=== PATIENT | male | born 1995 | race African-American/Black ===

== ENCOUNTER 2017-02-14 16:24 | Emergency (ER) | payer SELFPAY ==
[~2017-02-14] VITALS: Ht 180.3 cm; Wt 59.0 kg
[2017-02-14 16:36] VITALS: BP 135/61
[2017-02-14] MEDS ORDERED: AZITHROMYCIN 250 MG TABLET. PO ONE (16:45)
[2017-02-14] MEDS ORDERED: metroNIDAZOLE 500 MG TABLET PO ONE (16:45)
[2017-02-14] MEDS ORDERED: cefTRIAXone IM 250 MG VIAL IM ONE (16:45)
[2017-02-14 16:48] LABS: BILIRUBIN,URINE SMALL (NEG); GLUCOSE,URINE NEGATIVE (NEG); NITRITE,URINE NEGATIVE (NEG); PH,URINE 5.5; PROTEIN,URINE NEGATIVE (NEG-TRACE)
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
[2017-02-14 17:05] LABS: BACTERIA,URINE 0 /HPF (0-FEW); RBC,URINE OCC /HPF (0-2)
[2017-02-14] MEDS ORDERED: CIPR500T94 PO (17:13)
== END 2017-02-14 17:39 | disposition home or self-care (01) ==
LOC: ER 16:24
DX: Z11.3 Encounter for screening for infections with a predominantly sexual mode of transmission (principal); N39.0 Urinary tract infection, site not specified; F12.10 Cannabis abuse, uncomplicated; F17.210 Nicotine dependence, cigarettes, uncomplicated
CPT/HCPCS: 81001; 87086; 87491; 87591; 96372; 99284; J0696; Q0144

== ENCOUNTER 2017-03-01 01:29 | Emergency (ER) | payer SELFPAY ==
[~2017-03-01] VITALS: Ht 180.3 cm; Wt 61.2 kg
[~2017-03-01 01:29] MED LIST: CIPR500T94 PO
[2017-03-01 01:45] VITALS: BP 128/61
[2017-03-01] MEDS ORDERED: FLUORESCEIN OPHTH TEST STRIP. OS ONE (01:45)
[2017-03-01] MEDS ORDERED: TETRACAINE 0.5% OPHTH SOLUTION 4ML BOTTLE. OS ONE (01:45)
[2017-03-01] MEDS ORDERED: HYDROcodone/APAP 5/325MG 1 TAB TABLET PO ONE (02:15)
--- NOTE | 2017-03-01 02:20 | PHYS DOC ---
Past Medical History Past Medical History: No Pertinent History Past Surgical History: Other Additional Past Surgical Histo: RIGHT LEG Alcohol Use: None Drug Use: Marijuana Adult General Chief Complaint Chief Complaint: EYE PROBLEMS HPI HPI Patient is a 22 year old male presenting to the emergency department for evaluation of left eye pain status post being licked by a dog 2 days ago. Wears contact lenses and said he took out his contact lenses earlier yesterday. Patient says that he has photophobia with blurred vision. He denies any fevers chills nausea vomiting but he does have clear drainage from his left eye. Review of Systems Review of Systems Constitutional: Denies fever or chills [] Eyes: + change in visual acuity, redness, eye pain [] Current Medications Current Medications Current Medications Medications (Trade) Dose Ordered Sig/Natividad Start Time Stop Time Status Last Admin Dose Admin Acetaminophen/ Hydrocodone Bitart (Lortab 5/325) 2 tab 1X ONCE 03/01/17 02:15 03/01/17 02:16 DC 03/01/17 02:21 2 TAB Fluorescein Sodium (Ful-Chelsea) 1 strip 1X ONCE 03/01/17 01:45 03/01/17 01:46 DC 03/01/17 01:54 1 STRIP Tetracaine HCl (Tetracaine) 1 drop 1X ONCE 03/01/17 01:45 03/01/17 01:46 DC 03/01/17 01:54 1 DROP Allergies Allergies Allergies Coded Allergies Type Severity Reaction Last Updated Verified No Known Drug Allergies 02/14/17 No Physical Exam Physical Exam Constitutional: Well developed, well nourished, no acute distress, non-toxic appearance. [] Eyes: PERRLA, EOMI, diffuse conjunctival injection with no hyphema. At 6 o' clock position on the iris appears that there is some corneal inflammation but no dendrites. No foreign body seen. His iris appears very inflamed. Direct and consensual photophobia. Current Patient Data Vital Signs Vital Signs Date Time Temp Pulse Resp B/P (MAP) Pulse Ox O2 Delivery O2 Flow Rate FiO2 03/01/17 01:45 98.1 64 16 128/61 (83) 98 Room Air 98.1 EKG EKG [] Radiology/Procedures Radiology/Procedures [] Course & Med Decision Making Course & Med Decision Making Exam is consistent with an iritis so I spoke to the bag hanger audit consultant Dr. Alves and he stated that this was likely a keratitis given he is a contact lens wearer in the dog bite may have nothing to do with it. He recommended TobraDex and to follow with his motivational speaker later on today and come back to the ED with return precautions discussed. Basically he was told to come back with worsening redness photophobia or light sensitivity or vision changes. Patient aware and agreeable with plan for discharge and verbalized understanding of the need for short-term follow-up in the strict ER return precautions discussed as above. Dragon Disclaimer Dragon Disclaimer This electronic medical record was generated, in whole or in part, using a voice recognition dictation system. Departure Departure Impression: Primary Impression: Keratitis Disposition: HOME, SELF-CARE Condition: GOOD Referrals: NO PCP (PCP) Kosta AWAD MD Patient Instructions: Iritis Additional Instructions: DO NOT WEAR YOU CONTACT LENSES. START THE MEDICATION TODAY. YOU CAN ALSO TAKE IBUPROFEN FOR PAIN. FOLLOW WITH YOUR BILINGUAL MEDICAL RECEPTIONIST OR THE MOTORCYCLE POLICE OFFICER LATER ON TODAY. RETURN FOR WORSENING REDNESS, LIGHT SENSITIVITY, VISION CHANGES, OR PAIN. Scripts Hydrocodone/Apap 5-325 (NORCO 5-325 TABLET) 1 Each Tablet 1 TAB PO PRN Q6HRS Y for PAIN, #14 TAB 0 Refills Prov: GINNY DE OLIVEIRA DO 03/01/17 Tobramycin/Dexamethasone (TOBRADEX EYE DROPS) 5 Ml Drops.susp 1 DROP OD QID, #5 ML Prov: GINNY DE OLIVEIRA DO 03/01/17 GINNY DE OLIVEIRA DO Mar 01, 2017 02:20
[2017-03-01] MEDS ORDERED: TOBR5DRO2 OD (02:26)
[2017-03-01] MEDS ORDERED: HYDR-971 PO (02:26)
== END 2017-03-01 02:37 | disposition home or self-care (01) ==
LOC: ER 01:29
DX: H16.9 Unspecified keratitis (principal)
CPT/HCPCS: 99283

== ENCOUNTER 2017-08-24 10:13 | Emergency (ER) | payer SELFPAY ==
[2017-08-24] MEDS: ACETAMINOPHEN 500 MG TABLET PO ×2 (11:22)
[2017-08-24] MEDS: diphenhydrAMINE 50 MG/ML VIAL IM ×2 (11:23)
[2017-08-24] MEDS: DEXAMETHASONE SOD PHOS 4 MG/ML VIAL IM ×2 (11:26)
[2017-08-24] MEDS: METOCLOPRAMIDE 10 MG TABLET. PO ×2 (11:33)
[2017-08-24] MEDS: KETOROLAC 60 MG/2 ML INJ. IM ×2 (12:27)
== END 2017-08-24 12:40 | disposition home or self-care (01) ==
LOC: ER 10:13
DX: R51 Headache (principal); F12.10 Cannabis abuse, uncomplicated
CPT/HCPCS: 70450; 96372; 99284-25; J1100; J1200; J1885; J8597

== ENCOUNTER 2020-08-05 10:08 | Emergency (ER) | payer SELFPAY ==
[~2020-08-05] VITALS: Ht 180.3 cm; Wt 70.7 kg
[~2020-08-05 10:08] MED LIST changes: +HYDR-3164 PO; +TOBR5DRO2 OD
[2020-08-05 11:13] LABS: BILIRUBIN,URINE NEGATIVE (NEG); CLARITY,URINE CLOUDY; COLOR,URINE YELLOW; NITRITE,URINE NEGATIVE (NEG); PROTEIN,URINE NEGATIVE (NEG-TRACE); UROBILINOGEN,URINE 0.2 mg/dL (0.2 mg/dL)
[2020-08-05 11:54] LABS: BACTERIA,URINE 0 /HPF (0-FEW); RBC,URINE 0 /HPF (0-2); WBC,URINE TNTC /HPF (0-4)
[2020-08-05] MEDS ORDERED: DOXY100C2 PO (12:08)
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
[2020-08-05] MEDS ORDERED: cefTRIAXone IM 500 MG VIAL. IM ONE (12:15)
[2020-08-05 12:46] VITALS: BP 140/83
== END 2020-08-05 12:46 | disposition home or self-care (01) ==
LOC: ER 10:08
DX: R30.0 Dysuria (principal); R10.31 Right lower quadrant pain; R10.32 Left lower quadrant pain; R60.0 Localized edema; Z20.2 Contact with and (suspected) exposure to infections with a predominantly sexual mode of transmission; F12.90 Cannabis use, unspecified, uncomplicated; Z87.891 Personal history of nicotine dependence; Z98.890 Other specified postprocedural states
CPT/HCPCS: 81001; 87086; 87491; 87591; 96372; 99283; J0696